=== PATIENT | male | born 1955 | race Two or more races ===

== ENCOUNTER 2019-09-15 10:06 | Outpatient (CLI) | payer OTHER ==
[2019-09-15] MEDS ORDERED: NEURONTIN600 M1 PO (15:09)
== END 2019-09-15 15:00 | disposition home or self-care (01) ==
LOC: LAB 10:06
PROVIDERS: ATTEND Surgery
DX: K57.32 Diverticulitis of large intestine without perforation or abscess without bleeding (principal); R10.32 Left lower quadrant pain; Z01.810 Encounter for preprocedural cardiovascular examination

== ENCOUNTER 2019-09-15 12:15 | Inpatient (IN) | payer OTHER ==
[~2019-09-15] VITALS: Ht 182.9 cm; Wt 83.5 kg
[2019-09-15] MEDS ORDERED: NEURONTIN600 M1 PO (15:09)
[2019-09-20] MEDS ORDERED: OMEPRAZOLE20 MG PO (07:46)
[2019-10-17] MEDS ORDERED: INTESTINEX680 M1 PO (10:35)
[2019-10-17] MEDS ORDERED: PRILOSEC OTC20 MG PO (10:49)
== END 2019-10-17 16:48 | disposition home or self-care (01) | DRG 329 ==
LOC: O/R 09-19 06:55 → SURG 09-19 06:55 → SURH 09-19 12:15 → O/R 09-19 12:15 → SURH 09-19 13:45 → SURG 09-19 15:18 → SURH 09-25 11:10
PROVIDERS: ADMIT Surgery; ATTEND Surgery
PROC: 0DJD8ZZ Inspection of Lower Intestinal Tract, Via Natural or Artificial Opening Endoscopic (ICD-10-PCS; 2019-09-19)
PROC: 0DTN4ZZ Resection of Sigmoid Colon, Percutaneous Endoscopic Approach (ICD-10-PCS; principal; 2019-09-19 13:45)
PROC: 02HV33Z Insertion of Infusion Device into Superior Vena Cava, Percutaneous Approach (ICD-10-PCS; 2019-09-25)
PROC: 3E0436Z Introduction of Nutritional Substance into Central Vein, Percutaneous Approach (ICD-10-PCS; 2019-09-25)
PROC: BW21Y0Z Computerized Tomography (CT Scan) of Abdomen and Pelvis using Other Contrast, Unenhanced and Enhanced (ICD-10-PCS; 2019-09-27)
PROC: 0W9F30Z Drainage of Abdominal Wall with Drainage Device, Percutaneous Approach (ICD-10-PCS; 2019-09-29)
PROC: 0W9F30Z Drainage of Abdominal Wall with Drainage Device, Percutaneous Approach (ICD-10-PCS; 2019-10-06)
PROC: BW40ZZZ Ultrasonography of Abdomen (ICD-10-PCS; 2019-10-06)
PROC: CF1C1ZZ Planar Nuclear Medicine Imaging of Hepatobiliary System, All using Technetium 99m (Tc-99m) (ICD-10-PCS; 2019-10-06)
DX: K57.32 Diverticulitis of large intestine without perforation or abscess without bleeding (principal); K65.1 Peritoneal abscess; K91.31 Postprocedural partial intestinal obstruction; J98.11 Atelectasis; J95.89 Other postprocedural complications and disorders of respiratory system, not elsewhere classified; T81.43XA Infection following a procedure, organ and space surgical site, initial encounter; B37.89 Other sites of candidiasis; B96.29 Other Escherichia coli [E. coli] as the cause of diseases classified elsewhere; B95.2 Enterococcus as the cause of diseases classified elsewhere; B96.7 Clostridium perfringens [C. perfringens] as the cause of diseases classified elsewhere

== ENCOUNTER 2020-09-09 06:00 | Day surgery (SDC) | payer OTHER ==
[~2020-09-09 06:00] MED LIST: INTESTINEX680 M1 PO; NEURONTIN600 M1 PO; OMEPRAZOLE20 MG PO; PRILOSEC OTC20 MG PO
== END 2020-09-09 10:20 | disposition home or self-care (01) ==
LOC: AMB-ENDOS 06:00
PROVIDERS: ATTEND Surgery
DX: K57.32 Diverticulitis of large intestine without perforation or abscess without bleeding (principal); Z20.822 Contact with and (suspected) exposure to COVID-19

== ENCOUNTER 2020-10-04 06:48 | Day surgery (SDC) | payer OTHER | END 2020-10-04 16:15 | disposition home or self-care (01) | LOC: CIR.AMB 06:48 | PROVIDERS: ATTEND Orthopaedic Surgery Sports Medicine | DX: M75.122 Complete rotator cuff tear or rupture of left shoulder, not specified as traumatic (principal); M24.012 Loose body in left shoulder; M75.22 Bicipital tendinitis, left shoulder; Z20.822 Contact with and (suspected) exposure to COVID-19 ==